=== PATIENT | female | born 1955 | race Caucasian/White ===

== ENCOUNTER 2018-11-19 00:40 | Outpatient (CLI) | payer OTHER, SELFPAY ==
--- NOTE | 2018-11-19 16:00 | DI.MAMMO_ITS ---
SYMPTOM/DIAGNOSIS: SCREENING, Z12.31 MAMMOGRAMS: Mammograms were interpreted according to the usual protocol including computer analysis with CAD system, tomosynthesis and C view imaging. Comparison is made with exams dated [id number], most recently from [facility] in [place], [place]. The breasts are composed of scattered fibroglandular densities, breast density, Category B. No suspicious masses or suspicious microcalcifications are seen. There has been no significant change. IMPRESSION: Category 1B, negative mammogram. Yearly screening mammography is recommended. MQSA ASSESSMENT OF FINDINGS: Negative. Category 1. Patient will receive a letter notifying them of these results. BI-RADS category B. There are scattered areas of fibroglandular density.
== END 2018-11-19 01:00 ==
PROVIDERS: PCP Internal Medicine; Visit Provider Internal Medicine
DX: Z12.31 Encounter for screening mammogram for malignant neoplasm of breast (principal)
CPT/HCPCS: 77063; 77067